=== PATIENT | male | born 1970 | race Caucasian/White ===

== ENCOUNTER → 2023-09-19 12:27 | Outpatient (REF) | payer OTHER, SELFPAY | LOC: HWRAD 12:27 | PROVIDERS: ATTENDING PHYSICIAN Nurse Practitioner | DX: M25.572 Pain in left ankle and joints of left foot (principal) | CPT/HCPCS: 73610; 73630 ==

== ENCOUNTER → 2025-03-12 15:45 | Outpatient (REF) | payer BC, SELFPAY | LOC: HWRAD 15:45 | PROVIDERS: ATTENDING PHYSICIAN Hospitalist | DX: M25.562 Pain in left knee (principal) | CPT/HCPCS: 73560 ==

== ENCOUNTER → 2025-05-02 20:36 | Outpatient (REF) | payer OTHER, SELFPAY | LOC: MRI 20:36 | PROVIDERS: ATTENDING PHYSICIAN Orthopaedic Surgery; FAMILY PHYSICIAN Internal Medicine | DX: M25.562 Pain in left knee (principal) | CPT/HCPCS: 73721 ==

== ENCOUNTER 2025-06-25 06:13 | Day surgery (SDC) | payer BC, SELFPAY ==
[2025-06-17 14:44] LABS: Hematocrit 46.7 % (39.0-52.0); Hemoglobin 15.6 g/dL (13.0-18.0); Mean Corp Hgb Conc. 33.4 g/dL (33.0-37.0); Mean Corpuscular Volume 84.9 fL (80.0-94.0); Nucleated Red Blood Cells % 0 % (-); Platelet Count 306 10^3/uL (130-400); Red Cell Dist. Width 13.3 % (11.5-14.5)
[2025-06-17 15:34] LABS: Blood Urea Nitrogen 9 mg/dl (9-20); Calcium 9.9 mg/dl (8.4-10.2); Carbon Dioxide 24 mmol/L (22-30); Chloride 98 mmol/L (98-107); Glucose 156 mg/dl (70-99); Potassium 4.6 mmol/L (3.5-5.1); Sodium 135 mmol/L (135-145); eGFR > 60.00
[2025-06-25 11:49] VITALS: BP 162/88
[2025-06-25] MEDS: TYLENOL 1000 MG PO (11:59)
[2025-06-25] MEDS: NORMOSOL-R/PLASMALYTE-A 1000 IV (12:17)
[2025-06-25 15:32] VITALS: BP 116/64; BP 162/88
[2025-06-25] MEDS: DILAUDID 0.25 MG IV ×3 (15:37→16:00)
[2025-06-25 15:47] VITALS: BP 127/74
[2025-06-25 16:10] VITALS: BP 143/69
[2025-06-25 16:25] VITALS: BP 124/67
[2025-06-25 16:45] VITALS: BP 166/93
--- NOTE | 2025-06-25 18:54 | W.IMMPOSTOP ---
Surgical Immed Post Op Note
-
Primary Surgeon: Ananda Rust MD
Assisting Surgeon:
Pre-op Diagnosis: left knee medial meniscus tear
Post-op Diagnosis: left knee medial meniscus tear
Procedure Performed: arthroscopic left knee partial medial meniscectomy
Anesthesia Type: general
Specimen / Cultures: none
Estimated Blood Loss: 1mL
Complications: none apparent
Operative Findings: undersurface tear of medial meniscus posterior horn with flap in meniscotibial recess; grade 3 chondrosis patella, trochlea, medial femoral condyle
Operative dictation #: [id number]
== END 2025-06-25 16:53 | disposition home or self-care (01) ==
LOC: SDS 06:13
PROVIDERS: ATTENDING PHYSICIAN Student in an Organized Health Care Education/Training Program
DX: S83.242A Other tear of medial meniscus, current injury, left knee, initial encounter (principal); X58.XXXA Exposure to other specified factors, initial encounter
CPT/HCPCS: 29881; 36415; 80048; 85025